=== PATIENT | female | born 1965 | race Caucasian/White ===

== ENCOUNTER 2016-08-29 18:28 | Emergency (ER) | payer BC ==
[~2016-08-29] VITALS: Ht 162.6 cm; Wt 129.5 kg
[~2016-08-29 18:28] MED LIST: BCP TD; COLACE 100100 MG/CAP PO; DEXILANT60 MG PO; IBUPROFEN 200200 MG PO; PEPCID 20MG TAB20 MG PO; TYLENOL 500MG500 MG PO
[2016-08-29 18:34] VITALS: TEMP 102.4
[2016-08-29] MEDS ORDERED: PRIL40 PO (18:38)
[2016-08-29 19:38] VITALS: BP 136/79; PULSE 116
== END 2016-08-29 19:38 | disposition home or self-care (01) ==
LOC: COL.ER 18:28
DX: J06.9 Acute upper respiratory infection, unspecified (principal); R06.02 Shortness of breath

== ENCOUNTER → 2020-06-23 | Outpatient (CLI) | payer BC ==
[~2020-06-23] MED LIST changes: +PRIL40 PO
== END ==
LOC: MC.RAD 09:15
DX: Z12.31 Encounter for screening mammogram for malignant neoplasm of breast (principal)

== ENCOUNTER → 2023-08-24 | Outpatient (CLI) | payer BC | LOC: MC.RAD 11:26 | DX: Z12.31 Encounter for screening mammogram for malignant neoplasm of breast (principal) ==